=== PATIENT | female | born 1965 | race Caucasian/White ===

== ENCOUNTER 2020-04-01 08:39 | Inpatient (IN) ==
[2020-04-01] MEDS ORDERED: Clindamycin 900 MG/50 ML 900 MG/50 ML IV.SOLN IVPB ONE (09:15)
[2020-04-01] MEDS ORDERED: Lidocaine HCL 4 ML Topical Solution (Laryng-O-Jet Kit Sterile Pak) TP ONE (09:32)
[2020-04-01] MEDS ORDERED: *HR* Propofol 200 MG/20 ML VIAL IVP ONE (09:32)
[2020-04-01] MEDS ORDERED: *HR* Midazolam HCl 2 MG/2 ML VIAL ONE (09:32)
[2020-04-01] MEDS ORDERED: *HR* Rocuronium Bromide 50 MG/5 ML VIAL ONE (09:32)
[2020-04-01] MEDS ORDERED: Lidocaine -MPF 2% 2 ML VIAL ONE (09:32)
[2020-04-01] MEDS ORDERED: *HR* FentaNYL (PF) 100 MCG/2 ML VIAL ONE (09:32)
[2020-04-01] MEDS ORDERED: *HR* Succinylcholine 200 MG/10 ML VIAL IVP ONE (09:32)
[2020-04-01] MEDS: Ringers Solution, Lactated 1,000 ML IVC SCH ×2 (09:36→20:48)
[2020-04-01] MEDS ORDERED: *HR* HYDROmorphone PF 0.5 MG/0.5 ML SYRINGE IVP PRN (09:37)
[2020-04-01] MEDS ORDERED: *HR* OxyCODONE Immed Rel 5 MG TABLET PO PRN (09:37)
[2020-04-01] MEDS ORDERED: Promethazine 6.25 MG in Water for inj. (sterile) 20 ML IVPB PRN (09:37)
[2020-04-01] MEDS ORDERED: Ondansetron 4 MG/2 ML VIAL IVP PRN (09:37)
[2020-04-01] MEDS ORDERED: Acetaminophen IV 1,000 MG/100 ML BAG IVPB ONE (09:41)
[2020-04-01] MEDS ORDERED: *HR* PHENYLEPHRINE 1,000 MCG/10 ML SYRINGE IVP ONE (11:49)
[2020-04-01] MEDS ORDERED: Ondansetron 4 MG/2 ML VIAL ONE (11:51)
[2020-04-01] MEDS ORDERED: Dexamethasone 4 MG/ML VIAL ONE (11:51)
[2020-04-01] MEDS ORDERED: Naloxone 0.4 MG/ML INJ IVP PRN (12:39)
[2020-04-01] MEDS ORDERED: Ketorolac 30 MG/ML VIAL IVP PRN (12:39)
[2020-04-01] MEDS: *HR* HYDROcodone/Acet 5/325 mg TABLET PO PRN ×2 (15:52→20:37)
[2020-04-01] MEDS: Clindamycin 900 MG/50 ML 900 MG/50 ML IV.SOLN IVPB SCH (20:37)
[2020-04-02] MEDS: *HR* HYDROcodone/Acet 5/325 mg TABLET PO PRN ×3 (00:54→10:47)
[2020-04-02 04:35] LABS: Basophils % 0.2 %; Eosinophils % 0.1 %; Hematocrit 38.2 % (35.3-44.9); Immature Granulocytes % 0.4 % (0-4); Lymphocytes # 1.8 K/mcL (0.6-4.6); Lymphocytes % 12.6 %; Mean Corpuscular HGB Conc 32.7 g/dL (31.6-35.5); Mean Corpuscular Hemoglobin 32.4 pg (28.0-33.3); Mean Platelet Volume 10.4 fL (9.4-12.4); Monocytes # 0.8 K/mcL (0.0-1.3); Monocytes % 5.6 %; Platelet Count 219 K/mcL (140-400); Red Blood Count 3.86 M/mcL (3.82-4.97); Red Cell Distribution Width 11.8 % (11.5-14.5); Segmented Neutrophils % 81.1 %
[2020-04-02 04:36] LABS: Hemoglobin 12.5 g/dL (11.5-15.4); Neutrophils # 11.7 K/mcL (1.6-8.9); White Blood Count 14.4 K/mcL (4.3-11.1)
[2020-04-02 04:55] LABS: BUN/Creatinine Ratio 14 (6-26); Blood Urea Nitrogen 9 mg/dL (6-20); eGFR For African Americans > 60 (> 60); eGFR For Non-African Americans > 60 (> 60)
[2020-04-02] MEDS: Clindamycin 900 MG/50 ML 900 MG/50 ML IV.SOLN IVPB SCH ×2 (05:10→10:47)
[2020-04-02] MEDS: Ringers Solution, Lactated 1,000 ML IVC SCH (05:10)
[2020-04-02 08:45] VITALS: BP 110/61
[2020-04-02] MEDS ORDERED: Loratadine 10 MG TABLET PO SCH (10:41)
[2020-04-03] MEDS ORDERED: Loratadine 10 MG TABLET PO SCH (09:00)
== END 2020-04-02 12:54 | disposition home or self-care (01) | DRG 513 ==
LOC: SAMDAY 08:39 → 1NENUOBS 14:09
PROVIDERS: ADMIT Obstetrics & Gynecology; ATTEND Obstetrics & Gynecology